=== PATIENT | female | born 1950 | race Caucasian/White ===

== ENCOUNTER → 2017-07-10 | Outpatient (CLI) | payer OTHER | LOC: FIMAGING 07:57 | PROVIDERS: ATTEND Family Medicine | DX: Z12.31 Encounter for screening mammogram for malignant neoplasm of breast (principal) | CPT/HCPCS: G0202 ==

== ENCOUNTER 2018-08-12 16:56 | Emergency (ER) | payer OTHER ==
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
[2018-08-12] MEDS ORDERED: APIXABAN 5 MG TAB PO ONE (18:00)
[2018-08-12 18:19] VITALS: BP 143/93
== END 2018-08-12 18:34 | disposition home or self-care (01) ==
DX: I82.491 Acute embolism and thrombosis of other specified deep vein of right lower extremity (principal)

== ENCOUNTER → 2018-12-24 | Outpatient (CLI) | payer OTHER | LOC: FIMAGING 12:13 | PROVIDERS: ATTEND Physician Assistant Medical | DX: M79.661 Pain in right lower leg (principal); I80.01 Phlebitis and thrombophlebitis of superficial vessels of right lower extremity; Z86.718 Personal history of other venous thrombosis and embolism ==

== ENCOUNTER → 2019-01-12 | Outpatient (CLI) | payer OTHER | LOC: FIMAGING 16:32 | PROVIDERS: ATTEND Family Medicine | DX: R93.89 Abnormal findings on diagnostic imaging of other specified body structures (principal); D25.9 Leiomyoma of uterus, unspecified; Z85.038 Personal history of other malignant neoplasm of large intestine; Z78.0 Asymptomatic menopausal state ==